=== PATIENT | female | born 1960 | race Caucasian/White ===

== ENCOUNTER 2018-01-10 11:54 | Emergency (ER) | payer MEDICAID ==
[~2018-01-10] VITALS: Ht 162.6 cm; Wt 46.4 kg
[2018-01-10 11:57] VITALS: BP 107/72
[2018-01-10] MEDS ORDERED: SODIUM CHLORIDE 0.9% 1,000 ML IV ONE (12:13)
[2018-01-10] MEDS ORDERED: SODIUM CHLORIDE 0.9% 1,000ML IVBOLUS ONE (12:30)
[2018-01-10 12:44] LABS: RAPID INFLUENZA A Negative (Negative); RAPID INFLUENZA B Negative (Negative)
[2018-01-10 12:45] LABS: BASOPHILS # (AUTO) 0.11 x10^3/uL (0-0.1); BASOPHILS % (AUTO) 2 % (0-1); EOSINOPHILS # (AUTO) 0.19 x10^3/uL (0-0.4); EOSINOPHILS % (AUTO) 3 % (1-7); LYMPHOCYTES # (AUTO) 1.33 x10^3/uL (1-3.4); LYMPHOCYTES % (AUTO) 19 % (22-44); MD NO; MEAN CORPUSCULAR HEMOGLOBIN 33.3 pg (27.0-34.8); MEAN CORPUSCULAR HGB CONC 34.2 g/dL (32.4-35.8); MEAN CORPUSCULAR VOLUME 97.1 fL (80-100); MONOCYTES # (AUTO) 0.71 x10^3/uL (0.2-0.8); MONOCYTES % (AUTO) 10 % (2-9); NEUTROPHILS # (AUTO) 4.78 x10^3/uL (1.8-6.8); NEUTROPHILS % (AUTO) 67 % (42-75); PLATELET COUNT 283 x10^3/uL (130-400); RED BLOOD COUNT 4.64 x10^6/uL (3.82-5.3); RED CELL DISTRIBUTION WIDTH 13.1 % (9.6-15.2)
[2018-01-10 12:56] LABS: ANION GAP 5 mmol/L (5-15); CHLORIDE 104 mmol/L (98-107); CREATININE 0.83 mg/dL (0.55-1.02)
[2018-01-10 12:57] LABS: ALBUMIN 3.9 g/dL (3.4-5.0)
[2018-01-10 13:00] LABS: TROPONIN I < 0.015 ng/mL (0.000-0.045)
== END 2018-01-10 14:27 | disposition home or self-care (01) ==
LOC: ED 13:30
DX: J44.0 Chronic obstructive pulmonary disease with (acute) lower respiratory infection (principal); J20.9 Acute bronchitis, unspecified
CPT/HCPCS: 36415; 71045; 80048; 82040; 84484; 85025; 87400; 93005; 99285; J7512

== ENCOUNTER 2018-01-28 12:02 | Emergency (ER) | payer MEDICAID ==
[~2018-01-28] VITALS: Ht 162.6 cm; Wt 46.3 kg
[2018-01-28] MEDS ORDERED: IBUP200C5 PO (14:50)
[2018-01-28] MEDS ORDERED: CALC-451 PO (14:50)
[2018-01-28] MEDS ORDERED: ASCO500C2 PO (14:51)
[2018-01-28] MEDS ORDERED: MAGN400T36 PO (14:51)
[2018-01-28] MEDS ORDERED: IRON1TAB62 PO (14:51)
[2018-01-28] MEDS ORDERED: VITA1CAP PO (14:52)
[2018-01-28 15:06] VITALS: BP 99/64
== END 2018-01-28 15:08 | disposition home or self-care (01) ==
LOC: ED 15:02
DX: J44.1 Chronic obstructive pulmonary disease with (acute) exacerbation (principal); Z87.891 Personal history of nicotine dependence
CPT/HCPCS: 71046; 93005; 99284

== ENCOUNTER 2018-09-12 11:42 | Emergency (ER) | payer MEDICAID ==
[~2018-09-12] VITALS: Ht 162.6 cm; Wt 47.2 kg
[~2018-09-12 11:42] MED LIST: ASCO500C2 PO; CALC-451 PO; IBUP-1623 PO; IRON1TAB62 PO; MAGN400T36 PO; VITA1CAP PO
[2018-09-12 11:43] VITALS: BP 107/71
== END 2018-09-12 12:32 | disposition home or self-care (01) ==
LOC: ED 12:02
DX: K02.9 Dental caries, unspecified (principal); J44.9 Chronic obstructive pulmonary disease, unspecified; F17.200 Nicotine dependence, unspecified, uncomplicated; F14.10 Cocaine abuse, uncomplicated
CPT/HCPCS: 99283

== ENCOUNTER 2021-03-31 10:20 | Emergency (ER) | payer MEDICAID ==
[~2021-03-31] VITALS: Ht 162.6 cm; Wt 47.4 kg
[2021-03-31 10:22] VITALS: BP 131/52
--- NOTE | 2021-03-31 10:33 | NUR ---
PATIENT WALKED BACK FROM TRIAGE WITH CHIEF C/O LOW BACK PAIN SINCE SUNDAY PATIENT HAD LOWER BACK SPRAIN AT WORK 07/27/2019, HAS BEEN HAVING BACK ISSUES EVER SINCE INJURY. PATIENT REPORTS PAIN WITH LONG PERIODS OF STANDING AND LAYING DOWN. PATIENT REPORTS THAT THIS MORNING IT WAS HARD TO GET DRESSED AND MOVE AROUND. NADN, CALL LIGHT WITHIN REACH.
--- NOTE | 2021-03-31 11:42 | NUR ---
PATIENT RESTING IN [facility], CALL LIGHT WITHIN REACH. WAITING FOR ORDERS.
[2021-03-31] MEDS ORDERED: KETOROLAC 30 MG/1 ML IM ONE (12:00)
[2021-03-31] MEDS ORDERED: METHOCARBAMOL 750 MG TABLET PO ONE (12:00)
[2021-03-31] MEDS ORDERED: KETOROLAC 30 MG/1 ML ONE (12:10)
[2021-03-31] MEDS ORDERED: METHOCARBAMOL 750 MG TABLET ONE ×2 (12:10)
--- NOTE | 2021-03-31 12:17 | NUR ---
PATIENT BACK FROM IMAGING, MEDICATED PER [facility], CALL LIGHT WITHIN REACH. WAITING FOR IMAGING RESULTS.
--- NOTE | 2021-03-31 12:55 | NUR ---
Patient given discharge instructions and prescription and they have confirmed that they understand the instructions. Patient stable and ambulatory with steady gait from ED to private vehicle.
== END 2021-03-31 12:56 | disposition home or self-care (01) ==
LOC: ED 11:27
DX: M51.36 Other intervertebral disc degeneration, lumbar region (principal); G89.29 Other chronic pain; M54.5 Low back pain; F17.210 Nicotine dependence, cigarettes, uncomplicated
CPT/HCPCS: 72110; 96372; 99283; J1885